=== PATIENT | female | born 1990 | race African-American/Black ===

== ENCOUNTER 2018-09-29 06:47 | Emergency (ER) | payer OTHER ==
[2018-09-29 07:22] VITALS: BP 140/100; PULSE 104; RESP 18; TEMP 98.6
[2018-09-29] MEDS ORDERED: DEXAMETHASONE SOD PHOSPHATE 10 MG/ML 1 ML VIAL IM STA (07:32)
--- NOTE | 2018-09-29 07:40 | ED ---
General Adult HPI - General Chief complaint: Skin/Abscess/Foreign Body Stated complaint: Arm Swelling/Blister Time Seen by Provider: 09/29/18 07:06 Source: patient, RN notes reviewed Mode of arrival: ambulatory Limitations: no limitations - History of Present Illness Initial comments: 28-year-old female presents for evaluation of rash on bilateral upper extremities. Patient had a small rash on her right forearm several days prior with some surrounding erythema, she reported this was very itchy. She didn't believe this was associated with a bug bite. She had attempted to bomb her home, to kill whatever bugs were biting her. She has developed additional bites with surrounding erythema and swelling on both her right upper extremity and left upper extremity. Denies any dyspnea, denies cough. No tongue or lip swelling. No rash that is not associated with these bug bites. - Related Data Home Medications Medication Instructions Recorded Confirmed Albuterol Inhaler [Ventolin Hfa 2 puff INHALATION Q6HR PRN 12/28/13 09/27/18 Inhaler] Albuterol Nebulized [Ventolin 2.5 mg INHALATION DAILY PRN 09/27/18 09/27/18 Nebulized] Beclomethasone Dipropionate [Qvar 1 puff INHALATION ACHS PRN 09/27/18 09/27/18 40 mcg Redihaler] Etonogestrel [Nexplanon] 1 implant SQ [id number] 09/27/18 09/27/18 Previous Rx's Medication Instructions Recorded Montelukast [Singulair] 10 mg PO HS #30 tab 08/03/15 Cephalexin [Keflex] 500 mg PO Q8HR #30 cap 09/29/18 Sulfamethox-Tmp 800-160Mg [Bactrim 1 tab PO Q12HR #20 tab 09/29/18 DS 800-160 mg] diphenhydrAMINE [Benadryl] 25 mg PO TID PRN #21 capsule 09/29/18 methylPREDNISolone Dose Pack 4 mg PO DIRECTED #21 package 09/29/18 [Medrol Dose Pack] Allergies Allergy/AdvReac Type Severity Reaction Status Date / Time ibuprofen [From Motrin] Allergy Rash/Hives Verified 09/29/18 07:22 Review of Systems ROS Statement: Those systems with pertinent positive or pertinent negative responses have been documented in the HPI. ROS Other: All systems not noted in ROS Statement are negative. Past Medical History Past Medical History: Asthma Additional Past Medical History / Comment(s): migraines History of Any Multi-Drug Resistant Organisms: None Reported Past Surgical History: Section Additional Past Surgical History / Comment(s): D&C Past Anesthesia/Blood Transfusion Reactions: No Reported Reaction Past Psychological History: Depression Smoking Status: Never smoker - Past Family History Father Family Medical History: No Reported History Mother Family Medical History: No Reported History General Exam Limitations: no limitations General appearance: alert, in no apparent distress Head exam: Present: atraumatic, normocephalic Eye exam: Present: normal appearance, PERRL Respiratory exam: Present: normal lung sounds bilaterally. Absent: respiratory distress Cardiovascular Exam: Present: regular rate, normal rhythm GI/Abdominal exam: Present: soft. Absent: distended, tenderness Extremities exam: Present: full ROM, other. Absent: tenderness Neurological exam: Present: alert, oriented X3, CN II-XII intact. Absent: motor sensory deficit Psychiatric exam: Present: normal affect, normal mood Skin exam: Present: warm, rash, erythema, urticaria, vesicles (Patient has a 15 cm x 10 cm area on the left posterior forearm erythema, some small blistering, no induration, no abscess. She has 2 additional areas of mild induration and cellulitis on the right upper extremity with central lesion consistent with bug bite.) Course Vital Signs 09/29/18 07:18 Temperature 98.6 F Pulse Rate 104 H Respiratory 18 Rate Blood Pressure 140/100 O2 Sat by Pulse 94 L Oximetry Medical Decision Making - Medical Decision Making 28-year-old female presenting with rash. She has multiple areas of cellulitis, and likely ALLERGIC reaction. Patient given 10 mg of IV Decadron for symptom control, she will continue Benadryl. She will also be prescribed antibiotics for cellulitis. She will attempt to eradicate any insects from her home. She will follow-up with her primary care physician. If symptoms do not improve with usual treatment, she will follow-up with dermatology. Return with worsening or changing symptoms. Disposition Clinical Impression: Insect bites, Cellulitis Disposition: HOME SELF-CARE Condition: Good Instructions (If sedation given, give patient instructions): Insect Bite or Sting (ED), Cellulitis (ED) Prescriptions: Sulfamethox-Tmp 800-160Mg [Bactrim DS 800-160 mg] 1 tab PO Q12HR #20 tab diphenhydrAMINE [Benadryl] 25 mg PO TID PRN #21 capsule PRN Reason: Allergic Reaction Cephalexin [Keflex] 500 mg PO Q8HR #30 cap methylPREDNISolone Dose Pack [Medrol Dose Pack] 4 mg PO DIRECTED #21 package Is patient prescribed a controlled substance at d/c from ED?: No Referrals: Vianey Curran MD [Primary Care Provider] - 1-2 days Kayleigh Ta MD [STAFF PHYSICIAN] - 1-2 days Time of Disposition: 07:39
== END 2018-09-29 07:48 | disposition home or self-care (01) ==
LOC: EC 06:47
DX: S50.862A Insect bite (nonvenomous) of left forearm, initial encounter (principal); S40.861A Insect bite (nonvenomous) of right upper arm, initial encounter; L03.113 Cellulitis of right upper limb; J45.909 Unspecified asthma, uncomplicated; Z79.3 Long term (current) use of hormonal contraceptives; Z88.6 Allergy status to analgesic agent; W57.XXXA Bitten or stung by nonvenomous insect and other nonvenomous arthropods, initial encounter
CPT/HCPCS: 99283; 96372; J1100

== ENCOUNTER 2018-10-02 07:45 | Day surgery (SDC) | payer OTHER ==
[2018-09-27 11:22] VITALS: BMI 33.8
[~2018-10-02 07:45] MED LIST: HEPARIN SODIUM,PORCINE 5,000 UNIT/ML 1 ML VIAL SQ ONE; LACTATED RINGERS 1,000 ML IV SCH; LIDOCAINE 1% 20 ML VIAL (10MG/ML) FOR IV START INTRADERMA PRN; ceFAZolin IN SWFI 2 GM/20 ML SYRINGE IVP ONE
[2018-10-02] MEDS ORDERED: MIDAZOLAM 2 MG/2 ML VIAL IVP ONE ×2 (08:36→09:07)
[2018-10-02] MEDS ORDERED: DEXAMETHASONE SOD PHOS (MDV) 100 MG/10 ML VIAL IVP ONE (08:36)
[2018-10-02] MEDS ORDERED: ONDANSETRON 4 MG/2 ML VIAL IVP ONE (08:37)
[2018-10-02] MEDS: fentaNYL (PF) 50 MCG/ML 2 ML AMP IVP ONE ×2 (09:07→12:11)
--- NOTE | 2018-10-02 09:23 | P.GSHP ---
History of Present Illness H&P Date: 10/02/18 Chief Complaint: Umbilical hernia This is a 28-year-old female who presents today for laparoscopic robotic system repair of umbilical hernia. Patient developed a 3 cm mass in her umbilicus. Past Medical History Past Medical History: Asthma Additional Past Medical History / Comment(s): migraines History of Any Multi-Drug Resistant Organisms: None Reported Past Surgical History: Section Additional Past Surgical History / Comment(s): D&C Past Anesthesia/Blood Transfusion Reactions: No Reported Reaction Past Psychological History: Depression Smoking Status: Never smoker - Past Family History Father Family Medical History: No Reported History Mother Family Medical History: No Reported History Medications and Allergies Home Medications Medication Instructions Recorded Confirmed Type Albuterol Inhaler [Ventolin Hfa 2 puff INHALATION RT-Q6H PRN 12/28/13 09/29/18 History Inhaler] Montelukast [Singulair] 10 mg PO HS #30 tab 08/03/15 09/29/18 Rx Albuterol Nebulized [Ventolin 2.5 mg INHALATION RT-DAILY PRN 09/27/18 09/29/18 History Nebulized] Beclomethasone Dipropionate [Qvar 1 puff INHALATION RT-TID PRN 09/27/18 09/29/18 History 40 mcg Redihaler] Etonogestrel [Nexplanon] 1 implant SQ [id number] 09/27/18 09/29/18 History Acetaminophen Tab [Tylenol Tab] 650 mg PO Q6H PRN 09/29/18 10/02/18 History Cephalexin [Keflex] 500 mg PO Q8HR #30 cap 09/29/18 10/02/18 Rx Sulfamethox-Tmp 800-160Mg [Bactrim 1 tab PO Q12HR #20 tab 09/29/18 10/02/18 Rx DS 800-160 mg] diphenhydrAMINE [Benadryl] 25 mg PO TID PRN 09/29/18 10/02/18 History methylPREDNISolone Dose Pack 4 mg PO DIRECTED #21 package 09/29/18 10/02/18 Rx [Medrol Dose Pack] Allergies Allergy/AdvReac Type Severity Reaction Status Date / Time ibuprofen [From Motrin] Allergy Rash/Hives Verified 09/29/18 07:42 Surgical - Exam Vital Signs Temp Pulse Resp BP Pulse Ox 97.6 F 102 H 16 134/85 99 10/02/18 08:22 10/02/18 08:22 10/02/18 08:22 10/02/18 08:22 10/02/18 08:22 - General well developed, well nourished, no distress - Eyes PERRL - ENT normal pinna - Neck no masses - Respiratory normal expansion - Cardiovascular Rhythm: regular - Abdomen Abdomen: soft, non tender Hernia: umbilical (3 cm umbilical hernia) Results - Labs 10/02/18 08:29 Diabetes panel 10/02/18 Range/Units 08:29 Potassium 4.1 (3.5-5.1) mmol/L Pituitary panel 10/02/18 Range/Units 08:29 Potassium 4.1 (3.5-5.1) mmol/L Adrenal panel 10/02/18 Range/Units 08:29 Potassium 4.1 (3.5-5.1) mmol/L Assessment and Plan Assessment: Umbilical hernia. We'll perform laparoscopic robotic-assisted repair.
[2018-10-02] MEDS ORDERED: ESMOLOL 100 MG/10 ML VIAL ONE (09:57)
[2018-10-02] MEDS ORDERED: HYDROmorphone (PF) 1 MG/ML ONE (09:57)
[2018-10-02] MEDS ORDERED: ROPIVACAINE 5 MG/ML 30 ML VIAL ONE (09:57)
[2018-10-02] MEDS ORDERED: SUCCINYLCHOLINE CHLORIDE 100 MG/5 ML SYR IV ONE (09:57)
[2018-10-02] MEDS ORDERED: NEOSTIGMINE 1 MG/ML 10 ML VIAL ONE (09:57)
[2018-10-02] MEDS ORDERED: ROCURONIUM BROMIDE 10 MG/ML 10 ML VIAL IV ONE (09:57)
[2018-10-02] MEDS ORDERED: LIDOCAINE 1% INJ 10MG/ML (20 ML MDV) ONE (09:57)
[2018-10-02] MEDS ORDERED: GLYCOPYRROLATE 0.2 MG/ML 2 ML VIAL ONE (09:57)
[2018-10-02] MEDS ORDERED: PROPOFOL 10 MG/ML 20 ML VIAL IV ONE (09:57)
[2018-10-02] MEDS ORDERED: fentaNYL (PF) 50 MCG/ML 2 ML AMP ONE (09:57)
[2018-10-02] MEDS ORDERED: MIDAZOLAM 2 MG/2 ML VIAL ONE (09:57)
--- NOTE | 2018-10-02 09:58 | P.ONQ ---
Anesthesiology Proc Note - PNB - Peripheral Nerve Block Performed Bilateral Transversus Abdominis Single Time Out Performed: Yes (904) Procedure Start Time: :05 Procedure Stop Time: 09:15 Indication: Acute Post-Operative Pain, Dx/Pain Location (abdominal pain), Requested by physician Sedation Type: Sedate with meaningful contact maintained Preparation: Sterile Prep Position: Supine Catheter: None Needle Types: On-Q Needle Size: 100mm (4") Needle Gauge: 21 Technique: Ultrasound Injectate: Other (see comment) (10ml 0.5% Ropivacaine + 10ml 1% lidocaine with 1:200,000 + 2mg Dexamethasone epi each side) Blood Aspirated: No Pain Paresthesia on Injection Noted: No Resistance on Injection: Normal Events: Uneventful and Well Tolerated
[2018-10-02] MEDS ORDERED: BUPIVACAINE-EPI 0.5%-1:200,000 10 ML VIAL SQ ONE (10:31)
--- NOTE | 2018-10-02 11:08 | P.OP ---
Date of Procedure: 10/02/18 Preoperative Diagnosis: Umbilical hernia Postoperative Diagnosis: Umbilical and ventral hernia Procedure(s) Performed: Laparoscopic robotic-assisted repair of umbilical and ventral hernia Anesthesia: JAKE Surgeon: Herbert Dover Estimated Blood Loss (ml): 5 Pathology: none sent Condition: stable Disposition: PACU Description of Procedure: MThe patient was placed on the operating table in the supine position. He received general anesthesia. His abdomen was prepped and draped usual fashion. Using a 5 mm optical trocar under direct visualization the peritoneal cavity was entered in the left upper quadrant. The abdomen was then insufflated. The laparoscope was placed back into the perineal cavity. Next a 8 mm robotic trocar was placed in the left lower quadrant and a 12 mm robotic trocar was placed in the left lateral position. The original 5 mm trocar was exchanged for a 8 mm robotic trocar. The patient's placed in the left side up position. And the patient was undocked the robot. The umbilical hernia was visualized. Using hook cautery the peritoneum over the umbilical hernia was excised. The fascia was examined and there appeared to be evidence of extension of the umbilical hernia in the midline creating a ventral hernia. The fascial opening was repaired using 0V LOC suture. Next a piece of 11 cm round ventral light ST mesh was placed into the. Cavity and secured with 2 OV lock suture. The patient was undocked the robot. The needles were retrieved. The fascia of the 12 mm trocar site was closed with 0 Ethibond suture. Skin was closed interrupted 3-0 Monocryl suture. Dermabond dressings was applied. Patient top procedure well and was sent to recovery room stable condition.
[2018-10-02] MEDS: HYDROmorphone 0.5 MG/0.5 ML SYRINGE IVP PRN ×4 (11:20→11:45)
[2018-10-02 11:33] VITALS: TEMP 98.1
[2018-10-02] MEDS ORDERED: HYDROcodone/APAP 7.5-325MG 1 EACH TAB PO ONE (12:50)
[2018-10-02 13:31] VITALS: RESP 16
[2018-10-02 13:57] VITALS: BP 114/70; PULSE 70
== END 2018-10-02 14:00 | disposition home or self-care (01) ==
LOC: OR 07:45
PROVIDERS: ATTEND Surgery
DX: K42.9 Umbilical hernia without obstruction or gangrene (principal); K43.9 Ventral hernia without obstruction or gangrene; J45.909 Unspecified asthma, uncomplicated; Z88.6 Allergy status to analgesic agent; Z79.51 Long term (current) use of inhaled steroids; Z79.899 Other long term (current) drug therapy
CPT/HCPCS: 81025; 64488; 84132; 49652; C1781; J2250; J1644; J2710; J2405; J2001; J3010; J1170 ×2; J1100; J2795; J0330; J2704; J0690

== ENCOUNTER → 2019-02-11 | Outpatient (CLI) | payer OTHER ==
--- NOTE | 2019-02-11 10:52 | CT ---
EXAMINATION TYPE: CT abdomen pelvis w con DATE OF EXAM: 02/11/2019 COMPARISON: None HISTORY: Small bowel obstruction CT DLP: 766.6 mGycm Automated exposure control for dose reduction was used. TECHNIQUE: Helical acquisition of images from the lung bases through the pelvis have been completed. CONTRAST: Performed with Oral Contrast and with IV Contrast, patient injected with 100 mL of Isovue 300. FINDINGS: Small umbilical hernia contains fat, there is likely some local scarring, correlate for [place] gical history. LUNG BASES: No significant abnormality is appreciated. AORTA: No significant abnormality is appreciated. LIVER/GB: No significant abnormality is appreciated. PANCREAS: No significant abnormality is seen. SPLEEN: No significant abnormality is seen. ADRENALS: No significant abnormality is seen. KIDNEYS: No significant abnormality is seen. REPRODUCTIVE ORGANS: No significant abnormality is seen BOWEL: Some thickening along the sigmoid colon is indeterminate and could be due to lack of distenti on or muscular hypertrophy. Appendix is normal. Contrast courses to the level of the rectum. FREE AIR: No Free Air visible. ASCITES: None visible. PELVIC ADENOPATHY: None visualized. RETROPERITONEAL ADENOPATHY: No Retroperitoneal Adenopathy visible. URINARY BLADDER: No significant abnormality is seen. OSSEOUS STRUCTURES: No significant abnormality is seen. IMPRESSION:
== END ==
LOC: RADCTMAIN 06:50
PROVIDERS: ATTEND Surgery Plastic and Reconstructive Surgery
DX: K56.609 Unspecified intestinal obstruction, unspecified as to partial versus complete obstruction (principal)
CPT/HCPCS: 74177

== ENCOUNTER 2021-05-22 14:19 | Emergency (ER) | payer OTHER ==
[2021-05-22 14:35] VITALS: BP 125/82; PULSE 100; RESP 18; TEMP 98.6
--- NOTE | 2021-05-22 14:51 | ED ---
General Adult HPI - General Chief complaint: Recheck/Abnormal Lab/Rx Stated complaint: Wants COVID Test Time Seen by Provider: 05/22/21 14:24 Source: patient Mode of arrival: ambulatory Limitations: no limitations - History of Present Illness Initial comments: 31-year-old female presents to the emergency room for a chief complaint of needing a coronavirus test. Patient presents with another individual who tested positive for Covid. Patient herself denies any symptoms however would like to be tested through the emergency room today.Patient has no other complaints at this time including shortness of breath, chest pain, abdominal pain, nausea or vomiting, headache, or visual changes. - Related Data Home Medications Medication Instructions Recorded Confirmed RX: Albuterol Inhaler (Mhu) 2 puff INHALATION RT-Q6H PRN 12/28/13 09/29/18 [Ventolin Hfa Inhaler (Mhu)] Albuterol Nebulized [Ventolin 2.5 mg INHALATION RT-DAILY PRN 09/27/18 09/29/18 Nebulized] Beclomethasone Dipropionate [Qvar 1 puff INHALATION RT-TID PRN 09/27/18 09/29/18 40 mcg Redihaler] Etonogestrel [Nexplanon] 1 implant SQ [id number] 09/27/18 09/29/18 Acetaminophen Tab [Tylenol Tab] 650 mg PO Q6H PRN 09/29/18 10/02/18 diphenhydrAMINE [Benadryl] 25 mg PO TID PRN 09/29/18 10/02/18 Previous Rx's Medication Instructions Recorded RX: Montelukast [Singulair] 10 mg PO HS #30 tab 08/03/15 Cephalexin [Keflex] 500 mg PO Q8HR #30 cap 09/29/18 Sulfamethox-Tmp 800-160Mg [Bactrim 1 tab PO Q12HR #20 tab 09/29/18 DS 800-160 mg] methylPREDNISolone Dose Pack 4 mg PO DIRECTED #21 package 09/29/18 [Medrol Dose Pack] Docusate [Colace] 100 mg PO BID #20 capsule 10/02/18 HYDROcodone/APAP 7.5-325MG [[place] 1 tab PO Q4H PRN 3 Days #18 tab 10/02/18 7.5-325] Allergies Allergy/AdvReac Type Severity Reaction Status Date / Time ibuprofen [From Motrin] Allergy Rash/Hives Verified 05/22/21 14:36 Review of Systems ROS Statement: Those systems with pertinent positive or pertinent negative responses have been documented in the HPI. ROS Other: All systems not noted in ROS Statement are negative. Past Medical History Past Medical History: Asthma Additional Past Medical History / Comment(s): migraines History of Any Multi-Drug Resistant Organisms: None Reported Past Surgical History: Section, Hernia Repair Additional Past Surgical History / Comment(s): D&C Past Anesthesia/Blood Transfusion Reactions: No Reported Reaction Past Psychological History: No Psychological Hx Reported Smoking Status: Never smoker Past Alcohol Use History: Occasional Past Drug Use History: None Reported - Past Family History Father Family Medical History: No Reported History Mother Family Medical History: No Reported History General Exam Limitations: no limitations General appearance: alert, in no apparent distress Head exam: Present: atraumatic Eye exam: Present: normal appearance, PERRL, EOMI. Absent: scleral icterus, conjunctival injection ENT exam: Present: normal exam, mucous membranes moist Neck exam: Present: normal inspection, full ROM. Absent: tenderness Respiratory exam: Present: normal lung sounds bilaterally. Absent: respiratory distress, wheezes Cardiovascular Exam: Present: regular rate, normal rhythm, normal heart sounds Course Vital Signs 05/22/21 05/22/21 14:29 14:40 Temperature 98.6 F Pulse Rate 100 Respiratory 18 18 Rate Blood Pressure 125/82 O2 Sat by Pulse 98 Oximetry Medical Decision Making - Medical Decision Making covid test is negative. Patient does not want antibody infusion for post exposure prophylaxis. Patient can be discharged home. Will return here for any worsening symptoms. - Lab Data Lab Results 05/22/21 Range/Units 14:38 Coronavirus (PCR) Not Detected (Not Detectd) Disposition Clinical Impression: Lab test negative for COVID-19 virus Disposition: HOME SELF-CARE Condition: Good Instructions (If sedation given, give patient instructions): Coronavirus Disea se 2018 (COVID-19) Additional Instructions: Please follow-up with your doctor in one to 2 days. Return to the emergency room for any worsening symptoms. Is patient prescribed a controlled substance at d/c from ED?: No Referrals: Vianey Curran MD [Primary Care Provider] - 1-2 days Time of Disposition: 15:16
== END 2021-05-22 15:35 | disposition home or self-care (01) ==
LOC: EC 14:19
DX: Z20.822 Contact with and (suspected) exposure to COVID-19 (principal); J45.909 Unspecified asthma, uncomplicated; Z88.6 Allergy status to analgesic agent
CPT/HCPCS: 87635; 99283

== ENCOUNTER 2022-02-14 10:33 | Emergency (ER) | payer OTHER ==
[2022-02-14 10:45] VITALS: BP 124/90; PULSE 95; RESP 18; TEMP 98.3
--- NOTE | 2022-02-14 11:06 | ED ---
Recheck HPI - General Chief Complaint: Abdominal Pain Stated Complaint: 12 weeks preg, complications Time Seen by Provider: 02/14/22 10:46 Source: patient, RN notes reviewed Mode of arrival: ambulatory Limitations: no limitations - History of Present Illness Initial Comments: This is a 31-year-old female who presents to the emergency department req uesting an obstetrics ultrasound. Patient states that she had an OB appointment in [place] yesterday, and she had an ultrasound at that time, where they were unable to find a heartbeat. Patient denies any pelvic pain or vaginal bleeding. This was not the first ultrasound she's had. She has not had any issues in this thus far. She does have a hx of a miscarriage at 12 weeks a few years ago. Denies any fevers, chills, sore throat, cough, dyspnea, chest pain, palpit ations, abdominal pain, nausea, vomiting, diarrhea, back pain, or headaches. MD Complaint: other (Requesting obstetrics ultrasound) - Related Data Home Medications Medication Instructions Recorded Confirmed Vit No.179/Iron/Folic 1 tab PO DAILY 02/14/22 02/14/22 [ Tablet] Allergies Allergy/AdvReac Type Severity Reaction Status Date / Time ibuprofen [From Motrin] Allergy Rash/Hives Verified 02/14/22 11:32 Review of Systems ROS Statement: Those systems with pertinent positive or pertinent negative responses have been documented in the HPI. ROS Other: All systems not noted in ROS Statement are negative. Past Medical History Past Medical History: Asthma Additional Past Medical History / Comment(s): migraines History of Any Multi-Drug Resistant Organisms: None Reported Past Surgical History: Section, Hernia Repair Additional Past Surgical History / Comment(s): D&C Past Anesthesia/Blood Transfusion Reactions: No Reported Reaction Past Psychological History: No Psychological Hx Reported Smoking Status: Never smoker Past Alcohol Use History: Occasional Past Drug Use History: None Reported - Past Family History Father Family Medical History: No Reported History Mother Family Medical History: No Reported History General Exam Limitations: no limitations General appearance: alert, in no apparent distress Head exam: Present: atraumatic, normocephalic, normal inspection Respiratory exam: Present: normal lung sounds bilaterally. Absent: respiratory distress, wheezes, rales, rhonchi, stridor Cardiovascular Exam: Present: regular rate, normal rhythm, normal heart sounds. Absent: systolic murmur, diastolic murmur, rubs, gallop, clicks GI/Abdominal exam: Present: normal bowel sounds Neurological exam: Present: alert, oriented X3, CN II-XII intact Psychiatric exam: Present: normal affect, normal mood Skin exam: Present: warm, dry, intact, normal color. Absent: rash Course Vital Signs 02/14/22 10:40 Temperature 98.3 F Pulse Rate 95 Respiratory 18 Rate Blood Pressure 124/90 O2 Sat by Pulse 97 Oximetry Medical Decision Making - Medical Decision Making This is a 31-year-old female who presents to the emergency department requesting an obstetrics ultrasound. Repeat ultrasound is consistent with demise. Lab work was otherwise nonactionable. Advised the patient that she'll need to follow-up with her technical support coordinator to trend the hCG levels. She can also discuss with her technical support coordinator the best way to move forward, whether it be naturally, with a D&C, or medication. Return precautions reviewed in depth, the patient is instructed to return to the emergency department with any new, worsening, or concerning symptoms. Patient verbalized understanding. This case was discussed in detail with the attending ED physician. Presentation, findings, and treatment plan discussed in detail as well. - Lab Data Result diagrams: 02/14/22 11:09 02/14/22 11:09 Lab Results 02/14/22 02/14/22 02/14/22 Range/Units 10:50 11:09 11:09 WBC 4.3 (3.8-10.6) k/uL RBC 4.37 (3.80-5.40) m/uL Hgb 12.9 (11.4-16.0) gm/dL Hct 39.1 (34.0-46.0) % MCV 89.5 (80.0-100.0) fL MCH 29.5 (25.0-35.0) pg MCHC 33.0 (31.0-37.0) g/dL RDW 12.5 (11.5-15.5) % Plt Count 266 (150-450) k/uL MPV 7.2 Neutrophils % 52 % Lymphocytes % 32 % Monocytes % 7 % Eosinophils % 5 % Basophils % 1 % Neutrophils # 2.2 (1.3-7.7) k/uL Lymphocytes # 1.4 (1.0-4.8) k/uL Monocytes # 0.3 (0-1.0) k/uL Eosinophils # 0.2 (0-0.7) k/uL Basophils # 0.0 (0-0.2) k/uL Sodium 135 L (137-145) mmol/L Potassium 4.1 (3.5-5.1) mmol/L Chloride 106 (98-107) mmol/L Carbon Dioxide 23 (22-30) mmol/L Anion Gap 6 mmol/L BUN 7 (7-17) mg/dL Creatinine 0.70 (0.52-1.04) mg/dL Est GFR (CKD-EPI)AfAm >90 (>60 ml/min/1.73 sqM) Est GFR (CKD-EPI)NonAf >90 (>60 ml/min/1.73 sqM) Glucose 101 H (74-99) mg/dL Calcium 9.2 (8.4-10.2) mg/dL Total Bilirubin 0.6 (0.2-1.3) mg/dL AST 21 (14-36) U/L ALT 14 (4-34) U/L Alkaline Phosphatase 56 (38-126) U/L Total Protein 8.1 (6.3-8.2) g/dL Albumin 4.3 (3.5-5.0) g/dL HCG, Quant 9030.8 mIU/mL Urine Color Urine Appearance (Clear) Urine pH (5.0-8.0) Ur Specific [place] (1.001-1.035) Urine Protein (Negative) Urine Glucose (UA) (Negative) Urine Ketones (Negative) Urine Blood (Negative) Urine Nitrite (Negative) Urine Bilirubin (Negative) Urine Urobilinogen (<2.0) mg/dL Ur Leukocyte Esterase (Negative) Urine RBC (0-5) /hpf Urine WBC (0-5) /hpf Ur Squamous Epith Cells (0-4) /hpf Urine Bacteria (None) /hpf Urine Mucus (None) /hpf Blood Type O Positive Blood Type Recheck O Pos Bld Type Recheck Status No 02/14/22 Range/Units 11:16 WBC (3.8-10.6) k/uL RBC (3.80-5.40) m/uL Hgb (11.4-16.0) gm/dL Hct (34.0-46.0) % MCV (80.0-100.0) fL MCH (25.0-35.0) pg MCHC (31.0-37.0) g/dL RDW (11.5-15.5) % Plt Count (150-450) k/uL MPV Neutrophils % % Lymphocytes % % Monocytes % % Eosinophils % % Basophils % % Neutrophils # (1.3-7.7) k/uL Lymphocytes # (1.0-4.8) k/uL Monocytes # (0-1.0) k/uL Eosinophils # (0-0.7) k/uL Basophils # (0-0.2) k/uL Sodium (137-145) mmol/L Potassium (3.5-5.1) mmol/L Chloride (98-107) mmol/L Carbon Dioxide (22-30) mmol/L Anion Gap mmol/L BUN (7-17) mg/dL Creatinine (0.52-1.04) mg/dL Est GFR (CKD-EPI)AfAm (>60 ml/min/1.73 sqM) Est GFR (CKD-EPI)NonAf (>60 ml/min/1.73 sqM) Glucose (74-99) mg/dL Calcium (8.4-10.2) mg/dL Total Bilirubin (0.2-1.3) mg/dL AST (14-36) U/L ALT (4-34) U/L Alkaline Phosphatase (38-126) U/L Total Protein (6.3-8.2) g/dL Albumin (3.5-5.0) g/dL HCG, Quant mIU/mL Urine Color Yellow Urine Appearance Cloudy H (Clear) Urine pH 5.5 (5.0-8.0) Ur Specific [place] 1.013 (1.001-1.035) Urine Protein Negative (Negative) Urine Glucose (UA) Negative (Negative) Urine Ketones Negative (Negative) Urine Blood Negative (Negative) Urine Nitrite Negative (Negative) Urine Bilirubin Negative (Negative) Urine Urobilinogen 2.0 (<2.0) mg/dL Ur Leukocyte Esterase Negative (Negative) Urine RBC 1 (0-5) /hpf Urine WBC 1 (0-5) /hpf Ur Squamous Epith Cells <1 (0-4) /hpf Urine Bacteria Moderate H (None) /hpf Urine Mucus Rare H (None) /hpf Blood Type Blood Type Recheck Bld Type Recheck Status - Radiology Data Radiology results: report reviewed, image reviewed Disposition Clinical Impression: demise Disposition: HOME SELF-CARE Instructions (If sedation given, give patient instructions): Miscarriage (ED) Additional Instructions: Return to the emergency department with any new, worsening, or concerning symptoms. Make sure that you follow up with your technical support coordinator, as you will need to have your hCG levels trended. You can also discuss the possibility of a D&C with your technical support coordinator. Is patient prescribed a controlled substance at d/c from ED?: No Referrals: Vianey Curran MD [Primary Care Provider] - 1-2 days
[2022-02-14 11:24] LABS: Basophils % (A) 1 %; Eosinophils # (A) 0.2 k/uL (0-0.7); Eosinophils % (A) 5 %; HCT 39.1 % (34.0-46.0); HGB 12.9 gm/dL (11.4-16.0); Lymphocytes # (A) 1.4 k/uL (1.0-4.8); Lymphocytes % (A) 32 %; MCH 29.5 pg (25.0-35.0); MCV 89.5 fL (80.0-100.0); Mean Platelet Volume 7.2; Monocytes # (A) 0.3 k/uL (0-1.0); Monocytes % (A) 7 %; Neutrophils # (A) 2.2 k/uL (1.3-7.7); Neutrophils % (A) 52 %; Platelet Count 266 k/uL (150-450); RBC 4.37 m/uL (3.80-5.40); RDW 12.5 % (11.5-15.5); WBC 4.3 k/uL (3.8-10.6)
[2022-02-14 11:41] LABS: ALT 14 U/L (4-34); AST 21 U/L (14-36); African American GFR (CKD) >90 (>60 ml/min/1.73 sqM); Albumin 4.3 g/dL (3.5-5.0); Alkaline Phosphatase 56 U/L (38-126); Anion Gap 6 mmol/L; Blood Urea Nitrogen 7 mg/dL (7-17); Calcium 9.2 mg/dL (8.4-10.2); Carbon Dioxide 23 mmol/L (22-30); Chloride 106 mmol/L (98-107); Glucose 101 mg/dL (74-99); Non-African American GFR(CKD) >90 (>60 ml/min/1.73 sqM); Potassium 4.1 mmol/L (3.5-5.1); Sodium 135 mmol/L (137-145); Total Bilirubin 0.6 mg/dL (0.2-1.3); Total Protein 8.1 g/dL (6.3-8.2)
--- NOTE | 2022-02-14 11:51 | US ---
EXAMINATION TYPE: Transabdominal DATE OF EXAM: 02/14/2022 11:34 AM COMPARISON: NONE CLINICAL HISTORY: Unable to find heart rate yesterday. EXAM PERFORMED: Transabdominal (TA) EXAM MEASUREMENTS: GESTATIONAL AGE / DATING Physician Established: (12 weeks/3 days) EDC: 08/26/2022 Dates by LMP: (13 weeks/3 days) EDC: 08/26/2022 Dates by First Scan: No previous this is first scan Dates by Current Scan for: (9 weeks/0 days) , demise MATERNAL ANATOMY Uterus: 10.7 x 6.6 x 7.7 cm Right Ovary: 4.2 x 300 x 1.9 cm Left Ovary: not visualized Post CDS / Adnexa: wnl Presence of free fluid: none GESTATION / SURVEY CRL: 2.3 cm (9 weeks/0 days) Heart Rate: not detected Date of LMP: 11/19/2021 Beta HcG (if available): not available demise. No heart rate is detected on color Doppler or spectral Doppler IMPRESSION: Findings consistent with demise
[2022-02-14 11:58] LABS: Appearance,Urine Cloudy (Clear); Bacteria,Urine Moderate /hpf; Bilirubin,Urine Negative (Negative); Blood,Urine Negative (Negative); Color,Urine Yellow; Glucose,Urine (UA) Negative (Negative); Ketones,Urine Negative (Negative); Leukocyte Esterase,Urine Negative (Negative); Mucus,Urine Rare /hpf; Nitrite,Urine Negative (Negative); PH, Urine 5.5 (5.0-8.0); Protein,Urine Negative (Negative); RBC,Urine 1 /hpf (0-5); Specific Gravity,Urine 1.013 (1.001-1.035); Squamous Epithelial Cell,Urine <1 /hpf (0-4); WBC,Urine 1 /hpf (0-5)
[2022-02-14 11:58] LABS: HCG,Quantitative Serum 9030.8 mIU/mL
== END 2022-02-14 12:32 | disposition home or self-care (01) ==
LOC: EC 10:33
DX: O36.4XX0 Maternal care for intrauterine death, not applicable or unspecified (principal); J45.909 Unspecified asthma, uncomplicated; Z88.6 Allergy status to analgesic agent
CPT/HCPCS: 36415; 76801; 80053; 81001; 84702; 85025; 86900; 86901; 99284

== ENCOUNTER → 2022-02-21 | Outpatient (CLI) | payer OTHER ==
[2022-02-21 18:27] LABS: Basophils # (A) 0.06 X 10*3/uL (0.00-0.10); Basophils % (A) 1.2 %; Eosinophils # (A) 0.26 X 10*3/uL (0.04-0.35); Eosinophils % (A) 5.1 %; HCT 38.4 % (37.2-46.3); HGB 13.2 g/dL (12.0-15.0); Immature Grans, Automated 0.2 %; Lymphocytes # (A) 1.51 X 10*3/uL (0.90-5.00); Lymphocytes % (A) 29.5 %; MCH 30.5 pg (27.0-32.0); MCHC 34.4 g/dL (32.0-37.0); MCV 88.7 fL (80.0-97.0); Mean Platelet Volume 9.6 fL (9.5-12.2); Monocytes # (A) 0.55 X 10*3/uL (0.20-1.00); Monocytes % (A) 10.8 %; NRBC Per 100 WBC 0 /100 WBCS (0.0-0.0); Neutrophils # (A) 2.72 X 10*3/uL (1.80-7.70); Neutrophils % (A) 53.2 %; Platelet Count 227 X 10*3/uL (140-440); RBC 4.33 X 10*6/uL (4.10-5.20); RDW 12.4 % (11.5-14.5); WBC 5.11 X 10*3/uL (4.50-10.00)
== END | disposition home or self-care (01) ==
LOC: LABWHC1 12:35
DX: N91.2 Amenorrhea, unspecified (principal); Z34.90 Encounter for supervision of normal pregnancy, unspecified, unspecified trimester
CPT/HCPCS: 36415; 84702; 85025; 86850; 86900; 86901

== ENCOUNTER → 2022-03-31 | Outpatient (CLI) | payer OTHER ==
--- NOTE | 2022-04-01 09:24 | US ---
EXAMINATION TYPE: US pelvis complete transvag DATE OF EXAM: 03/31/2022 COMPARISON: 02/14/2022 CLINICAL HISTORY: 31-year-old female O03.9 MISCARRIAGE. Patient states she had a miscarriage and a D&C 3 weeks ago and is still having bleeding TECHNIQUE: Transabdominal and transvaginal sonographic images of the pelvis were acquired. Date of LMP: Unknown FINDINGS: EXAM MEASUREMENTS: Uterus: 8.6 x 4.6 x 4.8 cm Endometrial Stripe: 1.3 cm Right Ovary: 3.5 x 2.6 x 2.4 cm Left Ovary: 2.7 x 1.6 x 1.7 cm 1. Uterus: anteverted 2. Endometrium: heterogeneous and mildly thickened. No associated vascularity. 3. Right Ovary: Follicular change. 4. Left Ovary: Follicular change. 5. Bilateral Adnexa: wnl 6. Posterior cul-de-sac: wnl IMPRESSION: Mildly thickened and heterogeneous endometrium or uterine cavity contents measuring up to 1.3 cm thic k. Possible retained hemorrhagic products. No associated vascularity to clearly indicate retained pro ducts of conception. Correlate with beta hCG. Follicular change in both ovaries.
== END | disposition home or self-care (01) ==
LOC: RADUSWWP 16:09
PROVIDERS: ATTEND Obstetrics & Gynecology
DX: N93.9 Abnormal uterine and vaginal bleeding, unspecified (principal)
CPT/HCPCS: 76830; 76856

== ENCOUNTER 2023-02-28 13:05 | Emergency (ER) | payer OTHER ==
[2023-02-28] MEDS ORDERED: SODIUM CHLORIDE 0.9% 1,000 ML IV ONE (13:44)
--- NOTE | 2023-02-28 13:46 | ED ---
Female Urogenital HPI - General Chief complaint: Abdominal Pain Stated complaint: Cramping, not far how long Time Seen by Provider: 02/28/23 13:15 Source: patient, RN notes reviewed, old records reviewed Mode of arrival: ambulatory Limitations: no limitations - History of Present Illness Initial comments: This is a 32-year-old female the ER today. This patient Dese for evaluation regards to abdominal pain. History of prior hernia. Patient's abdominal pain today is Located by positive . Patient believes she may be about 1-2 months currently. She had at home positive test no vaginal bleeding no discharge no nausea vomiting no diarrhea no fevers no medical history takes no medications MD Complaint: pelvic pain, other (Positive ) -: days(s) Location: suprapubic Severity: mild Severity scale (1-10): 2 Quality: cramping Consistency: constant Improves with: none Worsens with: none Last Menstrual Period: 01/26/23 Patient : Yes Associated Symptoms: abdominal pain, nausea/vomiting, weakness - Related Data Sexually active: Yes Home Medications Medication Instructions Recorded Confirmed Vit No.179/Iron/Folic 1 tab PO DAILY 02/14/22 02/14/22 [ Tablet] Allergies Allergy/AdvReac Type Severity Reaction Status Date / Time ibuprofen [From Motrin] Allergy Rash/Hives Verified 02/28/23 13:10 Review of Systems ROS Statement: Those systems with pertinent positive or pertinent negative responses have been documented in the HPI. ROS Other: All systems not noted in ROS Statement are negative. Past Medical History Past Medical History: Asthma Additional Past Medical History / Comment(s): migraines History of Any Multi-Drug Resistant Organisms: None Reported Past Surgical History: Section, Hernia Repair Additional Past Surgical History / Comment(s): D&C Past Anesthesia/Blood Transfusion Reactions: No Reported Reaction Past Psychological History: No Psychological Hx Reported Smoking Status: Never smoker Past Alcohol Use History: Occasional Past Drug Use History: None Reported - Past Family History Father Family Medical History: No Reported History Mother Family Medical History: No Reported History General Exam - General Exam Comments Initial Comments: No abdominal tenderness Limitations: no limitations General appearance: alert, in no apparent distress, anxious Head exam: Present: atraumatic, normocephalic, normal inspection Eye exam: Present: normal appearance, PERRL, EOMI. Absent: scleral icterus, conjunctival injection, periorbital swelling ENT exam: Present: normal exam, mucous membranes moist Neck exam: Present: normal inspection. Absent: tenderness, meningismus, lymphadenopathy Respiratory exam: Present: normal lung sounds bilaterally. Absent: respiratory distress, wheezes, rales, rhonchi, stridor Cardiovascular Exam: Present: regular rate, normal rhythm, normal heart sounds. Absent: systolic murmur, diastolic murmur, rubs, gallop, clicks GI/Abdominal exam: Present: soft, normal bowel sounds. Absent: distended, tenderness, guarding, rebound, rigid Extremities exam: Present: normal inspection, full ROM, normal capillary refill. Absent: tenderness, pedal edema, joint swelling, calf tenderness Back exam: Present: normal inspection Neurological exam: Present: alert, oriented X3, CN II-XII intact Psychiatric exam: Present: normal affect, normal mood Skin exam: Present: warm, dry, intact, normal color. Absent: rash Course Vital Signs 02/28/23 02/28/23 02/28/23 13:06 15:25 16:46 Temperature 98.3 F 98.4 F 98.2 F Pulse Rate 108 H 79 76 Respiratory 18 18 16 Rate Blood Pressure 129/87 115/85 116/89 O2 Sat by Pulse 98 100 99 Oximetry - Reevaluation(s) Reevaluation #1: 02/28/23 15:33 Medical records reviewed Reevaluation #2: 02/28/23 16:30 Patient has no current abdominal pain. No abdominal tenderness throughout ER stay and are both initial exam and recurrent exam Reevaluation #3: 02/28/23 16:30 Patient informed of results and questions answered Patient understands to receive outpatient beta hCG in 2 days Reevaluation #4: 02/28/23 15:33 Was pt. sent in by a medical professional or institution (, PA, HOME HEALTH CARE PROVIDER, urgent care, hospital, or alf...) When possible be specific @ -no Did you speak to anyone other than the patient for history (EMS, parent, family, police, friend...)? What history was obtained from this source @ -no Did you review nursing and triage notes (agree or disagree)? Why? @ -agree Are old charts reviewed (outside hosp., previous admission, EMS record, old EKG, old radiological studies, urgent care reports/EKG's, alf records)? Report findings @ -yes Differential Diagnosis (chest pain, altered mental status, abdominal pain women, abdominal pain men, vaginal bleeding, weakness, fever, dyspnea, syncope, headache, dizziness, GI bleed, back pain, seizure, CVA, palpatations, mental health, musculoskeletal)? @ -prior EKG interpreted by me (3pts min.). @ -no X-rays interpreted by me (1pt min.). @ -no CT interpreted by me (1pt min.). @ -no U/S interpreted by me (1pt. min.). @ -yes What testing was considered but not performed or refused? (CT, X-rays, U/S, labs)? Why? @ -none What meds were considered but not given or refused? Why? @ -none Did you discuss the management of the patient with other professionals (professionals i.e. , PA, HOME HEALTH CARE PROVIDER, lab, RT, psych nurse, social work msw, packager hand, teacher, fire control officer, wrapper caser)? Give summary @ -no Was smoking cessation discussed for >3mins.? @ -no Was critical care preformed (if so, how long)? @ -no Were there social determinants of health that impacted care today? How? (Homelessness, low income, unemployed, alcoholism, drug addiction, transportation, low edu. Level, literacy, decrease access to med. care, care home, rehab)? @ -none Was there de-escalation of care discussed even if they declined (Discuss DNR or withdrawal of care, Hospice)? DNR status @ -no What co-morbidities impacted this encounter? (DM, HTN, Smoking, COPD, CAD, Cancer, CVA, ARF, Chemo, Hep., AIDS, mental health diagnosis, sleep apnea, morbid obesity)? @ -none Was patient admitted / discharged? Hospital course, mention meds given and route, prescriptions, significant lab abnormalities, going to OR and other perti nent info. @ - 32 female to the ER today for evaluation of abdominal pain. Patient positive early likely IUP, also could be ectopic versus early versus demise. Patient will follow-up as an outpatient Charge Undiagnosed new problem with uncertain prognosis? @ -no Drug Therapy requiring intensive monitoring for toxicity (Heparin, Nitro, Insulin, Cardizem)? @ -no Were any procedures done? @ -no Diagnosis/symptom? @ -Abdominal pain and , early IUP versus demise miscarriage and ectopic Acute, or Chronic, or Acute on Chronic? @ -Acute Uncomplicated (without systemic symptoms) or Complicated (systemic symptoms)? @ -Complicated Side effects of treatment? @ -no Exacerbation, Progression, or Severe Exacerbation? @ -exacerbation Poses a threat to life or bodily function? How? (Chest pain, USA, MA, pneumonia, PE, COPD, DKA, ARF, appy, cholecystitis, CVA, Diverticulitis, Homicidal, Suicidal, threat to staff... and all critical care pts) @ -no Reevaluation #5: 02/28/23 15:33 Differential Abdominal Pain Women: Appendicitis, Cholecystitis, diverticulosis, ischemic bowel, pancreatitis, hepat itis, UTI, gastroenteritis, AAA, incarcerated hernia, bowel obstruction, constipation, inflammatory bowel, hepatitis, peptic ulcer disease, splenic infarction, perforated viscus, vulvitis, ovarian torsion, PID, kidney stone, placenta abruption, this is not meant to be an all-inclusive list Medical Decision Making - Medical Decision Making 32 female to the ER today for evaluation of abdominal pain. Patient positive early likely IUP, also could be ectopic versus early versus demise. Patient will follow-up as an outpatient - Lab Data Result diagrams: 02/28/23 13:48 02/28/23 13:48 Lab Results 02/28/23 02/28/23 02/28/23 Range/Units 13:48 13:48 13:48 WBC 6.1 (3.8-10.6) k/uL RBC 4.65 (3.80-5.40) m/uL Hgb 14.6 (11.4-16.0) gm/dL Hct 41.2 (34.0-46.0) % MCV 88.5 (80.0-100.0) fL MCH 31.4 (25.0-35.0) pg MCHC 35.5 (31.0-37.0) g/dL RDW 12.4 (11.5-15.5) % Plt Count 299 (150-450) k/uL MPV 7.1 Neutrophils % 53 % Lymphocytes % 31 % Monocytes % 8 % Eosinophils % 5 % Basophils % 1 % Neutrophils # 3.2 (1.3-7.7) k/uL Lymphocytes # 1.9 (1.0-4.8) k/uL Monocytes # 0.5 (0-1.0) k/uL Eosinophils # 0.3 (0-0.7) k/uL Basophils # 0.1 (0-0.2) k/uL PT 10.6 (9.0-12.0) sec INR 1.0 (<1.2) APTT 22.9 (22.0-30.0) sec Sodium (137-145) mmol/L Potassium (3.5-5.1) mmol/L Chloride (98-107) mmol/L Carbon Dioxide (22-30) mmol/L Anion Gap mmol/L BUN (7-17) mg/dL Creatinine (0.52-1.04) mg/dL Est GFR (CKD-EPI)AfAm (>60 ml/min/1.73 sqM) Est GFR (CKD-EPI)NonAf (>60 ml/min/1.73 sqM) Glucose (74-99) mg/dL Calcium (8.4-10.2) mg/dL Total Bilirubin (0.2-1.3) mg/dL AST (14-36) U/L ALT (4-34) U/L Alkaline Phosphatase (38-126) U/L Total Protein (6.3-8.2) g/dL Albumin (3.5-5.0) g/dL HCG, Quant mIU/mL Urine Color Yellow Urine Appearance Cloudy H (Clear) Urine pH 5.5 (5.0-8.0) Ur Specific [place] 1.017 (1.001-1.035) Urine Protein Negative (Negative) Urine Glucose (UA) Negative (Negative) Urine Ketones Negative (Negative) Urine Blood Negative (Negative) Urine Nitrite Negative (Negative) Urine Bilirubin Negative (Negative) Urine Urobilinogen 3.0 (<2.0) mg/dL Ur Leukocyte Esterase Negative (Negative) Urine RBC 2 (0-5) /hpf Urine WBC 4 (0-5) /hpf Ur Squamous Epith Cells 7 H (0-4) /hpf Urine Bacteria Occasional H (None) /hpf Urine Mucus Rare H (None) /hpf Urine HCG, Qual (Not Detectd) Blood Type Blood Type Recheck Bld Type Recheck Status 02/28/23 02/28/23 02/28/23 Range/Units 13:48 13:48 13:48 WBC (3.8-10.6) k/uL RBC (3.80-5.40) m/uL Hgb (11.4-16.0) gm/dL Hct (34.0-46.0) % MCV (80.0-100.0) fL MCH (25.0-35.0) pg MCHC (31.0-37.0) g/dL RDW (11.5-15.5) % Plt Count (150-450) k/uL MPV Neutrophils % % Lymphocytes % % Monocytes % % Eosinophils % % Basophils % % Neutrophils # (1.3-7.7) k/uL Lymphocytes # (1.0-4.8) k/uL Monocytes # (0-1.0) k/uL Eosinophils # (0-0.7) k/uL Basophils # (0-0.2) k/uL PT (9.0-12.0) sec INR (<1.2) APTT (22.0-30.0) sec Sodium 135 L (137-145) mmol/L Potassium 4.4 (3.5-5.1) mmol/L Chloride 102 (98-107) mmol/L Carbon Dioxide 21 L (22-30) mmol/L Anion Gap 12 mmol/L BUN 12 (7-17) mg/dL Creatinine 1.08 H (0.52-1.04) mg/dL Est GFR (CKD-EPI)AfAm 79 (>60 ml/min/1.73 sqM) Est GFR (CKD-EPI)NonAf 69 (>60 ml/min/1.73 sqM) Glucose 102 H (74-99) mg/dL Calcium 9.7 (8.4-10.2) mg/dL Total Bilirubin 0.9 (0.2-1.3) mg/dL AST 21 (14-36) U/L ALT 15 (4-34) U/L Alkaline Phosphatase 66 (38-126) U/L Total Protein 8.9 H (6.3-8.2) g/dL Albumin 4.6 (3.5-5.0) g/dL HCG, Quant 9209.6 mIU/mL Urine Color Urine Appearance (Clear) Urine pH (5.0-8.0) Ur Specific [place] (1.001-1.035) Urine Protein (Negative) Urine Glucose (UA) (Negative) Urine Ketones (Negative) Urine Blood (Negative) Urine Nitrite (Negative) Urine Bilirubin (Negative) Urine Urobilinogen (<2.0) mg/dL Ur Leukocyte Esterase (Negative) Urine RBC (0-5) /hpf Urine WBC (0-5) /hpf Ur Squamous Epith Cells (0-4) /hpf Urine Bacteria (None) /hpf Urine Mucus (None) /hpf Urine HCG, Qual Detected (Not Detectd) Blood Type O Positive Blood Type Recheck O Pos Bld Type Recheck Status No - Radiology Data Radiology results: report reviewed (US is POSITIVE FOR GESTATIONAL SAC, NO POLE, NO HEARTBEAT, NO ECTOPIC NOTED), image reviewed Disposition Clinical Impression: Abdominal pain, Disposition: HOME SELF-CARE Condition: Good Instructions (If sedation given, give patient instructions): Abdominal Pain in (ED) Is patient prescribed a controlled substance at d/c from ED?: No Referrals: Sabine Quintanilla MD [STAFF PHYSICIAN] - 1-2 days Time of Disposition: 16:30
[2023-02-28 14:15] LABS: Basophils # (A) 0.1 k/uL (0-0.2); Basophils % (A) 1 %; Eosinophils # (A) 0.3 k/uL (0-0.7); Eosinophils % (A) 5 %; HCT 41.2 % (34.0-46.0); HGB 14.6 gm/dL (11.4-16.0); Lymphocytes # (A) 1.9 k/uL (1.0-4.8); Lymphocytes % (A) 31 %; MCH 31.4 pg (25.0-35.0); MCHC 35.5 g/dL (31.0-37.0); MCV 88.5 fL (80.0-100.0); Mean Platelet Volume 7.1; Monocytes # (A) 0.5 k/uL (0-1.0); Monocytes % (A) 8 %; Neutrophils # (A) 3.2 k/uL (1.3-7.7); Neutrophils % (A) 53 %; Platelet Count 299 k/uL (150-450); RBC 4.65 m/uL (3.80-5.40); RDW 12.4 % (11.5-15.5); WBC 6.1 k/uL (3.8-10.6)
[2023-02-28 14:21] LABS: Appearance,Urine Cloudy (Clear); Bacteria,Urine Occasional /hpf; Bilirubin,Urine Negative (Negative); Blood,Urine Negative (Negative); Color,Urine Yellow; Glucose,Urine (UA) Negative (Negative); Ketones,Urine Negative (Negative); Leukocyte Esterase,Urine Negative (Negative); Mucus,Urine Rare /hpf; Nitrite,Urine Negative (Negative); PH, Urine 5.5 (5.0-8.0); Protein,Urine Negative (Negative); RBC,Urine 2 /hpf (0-5); Specific Gravity,Urine 1.017 (1.001-1.035); Squamous Epithelial Cell,Urine 7 /hpf (0-4); WBC,Urine 4 /hpf (0-5)
[2023-02-28 14:24] LABS: Partial Thromboplastin Time 22.9 sec (22.0-30.0); Prothrombin Time 10.6 sec (9.0-12.0)
[2023-02-28 14:54] LABS: ALT 15 U/L (4-34); AST 21 U/L (14-36); African American GFR (CKD) 79 (>60 ml/min/1.73 sqM); Albumin 4.6 g/dL (3.5-5.0); Alkaline Phosphatase 66 U/L (38-126); Anion Gap 12 mmol/L; Blood Urea Nitrogen 12 mg/dL (7-17); Calcium 9.7 mg/dL (8.4-10.2); Carbon Dioxide 21 mmol/L (22-30); Chloride 102 mmol/L (98-107); Glucose 102 mg/dL (74-99); Non-African American GFR(CKD) 69 (>60 ml/min/1.73 sqM); Potassium 4.4 mmol/L (3.5-5.1); Sodium 135 mmol/L (137-145); Total Bilirubin 0.9 mg/dL (0.2-1.3); Total Protein 8.9 g/dL (6.3-8.2)
[2023-02-28 15:08] LABS: HCG,Quantitative Serum 9209.6 mIU/mL
--- NOTE | 2023-02-28 15:44 | US ---
EXAMINATION TYPE: Transabdominal DATE OF EXAM: 02/28/2023 3:21 PM COMPARISON: US 03/31/22, No prior for this . CLINICAL INDICATION: Female, 32 years old with history of pain; Pain, history of 2 miscarriages. D an d C. . EXAM PERFORMED: Transvaginal (TV) and Transabdominal (TA) EXAM MEASUREMENTS: GESTATIONAL AGE / DATING Physician Established: Not yet established Dates by LMP: (4 weeks/5 days) EDC: 11/02/2023 Dates by First Scan: This is first scan Dates by Current Scan for: (5 weeks/0 days) EDC: 10/31/2023 By gestational sac only MATERNAL ANATOMY Uterus: 9.2 x 5.3 x 4.5 cm. Subcentimeter anechoic areas seen in cervix. Right Ovary: 3.9 x 2.4 x 2.7 cm. Complex area seen, mentioned below. Left Ovary: Not seen. Post CDS / Adnexa: Fluid seen in CDS. Presence of free fluid: Free fluid seen in CDS. Presence of corpus luteal cyst: Possible in right ovary, complex area seen: 2.1 x 1.9 x 2.4 cm. Presence of subchorionic bleed: Hypoechoic area seen adjacent to the gestational sac: 1.0 x 0.9 x 0.4 cm. GESTATION / SURVEY CRL: Not yet seen. MSD: 1.01 cm (5 weeks/0 days) Yolk Sac (normal less than 6mm): 1.8 mm IUP: Gestational sac and yolk sac were only seen at this time. Date of LMP: 01/26/2023 Beta HcG (if available): 9,209.6 mIU/mL IMPRESSION: There is intrauterine gestational sac with yolk sac however no evidence for pole. The findings could reflect normal early IUP however ectopic , blighted ovum and missed spontaneous aborti on are not excluded and strict clinical correlation as well as serial beta hCG and/or ultrasound are recommended. Small subchorionic hemorrhage seen as well. Complex right ovarian lesion.
[2023-02-28 16:46] VITALS: BP 116/89; PULSE 76; RESP 16; TEMP 98.2
== END 2023-02-28 16:51 | disposition home or self-care (01) ==
LOC: EC 13:05
DX: O26.891 Other specified pregnancy related conditions, first trimester (principal); R10.30 Lower abdominal pain, unspecified; O99.511 Diseases of the respiratory system complicating pregnancy, first trimester; J45.909 Unspecified asthma, uncomplicated; Z88.6 Allergy status to analgesic agent; Z3A.01 Less than 8 weeks gestation of pregnancy
CPT/HCPCS: 36415; 76801; 76817; 80053; 81001; 81025; 84702; 85025; 85610; 85730; 86900; 86901; 96360; 96361; 99284

== ENCOUNTER → 2023-03-02 | Outpatient (CLI) | payer OTHER | END | disposition home or self-care (01) | LOC: LABWHC1 11:57 | PROVIDERS: ATTEND Emergency Medicine | DX: Z36.89 Encounter for other specified antenatal screening (principal) | CPT/HCPCS: 36415; 84702 ==

== ENCOUNTER 2023-05-06 11:20 | Emergency (ER) | payer OTHER ==
[2023-05-06 11:47] VITALS: BP 126/88; PULSE 110; RESP 18; TEMP 97.7
--- NOTE | 2023-05-06 12:03 | ED ---
General Adult HPI - General Chief complaint: Abdominal Pain Stated complaint: Congestion Time Seen by Provider: 05/06/23 11:41 Source: patient Mode of arrival: ambulatory Limitations: no limitations - History of Present Illness Initial comments: Patient is a 32-year-old female who presents emergency room with complaints of flulike symptoms and decreased movement. Patient is roughly 14 weeks last menstrual period was January 29. Patient states that she has had nasal congestion sinus pressure and a sore throat for the last few days. No sick contacts. The patient states that she has had a decreased movement over the last 2 days especially at night. She states she was able to feel the baby move at night but has not last 2 days. Denies any abdominal pain or pelvic pain. She denies any vaginal bleeding. Occasionally she has burning when she urinates but states this is usually when she has not urinated in a while. Denies any vaginal discharge or change in sexual history. Denies any concerning for an STD. She states her OB tomorrow. - Related Data Home Medications Medication Instructions Recorded Confirmed Vit No.179/Iron/Folic 1 tab PO DAILY 02/14/22 02/14/22 [ Tablet] Allergies Allergy/AdvReac Type Severity Reaction Status Date / Time ibuprofen [From Motrin] Allergy Rash/Hives Verified 05/06/23 11:31 Review of Systems ROS Statement: Those systems with pertinent positive or pertinent negative responses have been documented in the HPI. ROS Other: All systems not noted in ROS Statement are negative. Past Medical History Past Medical History: Asthma Additional Past Medical History / Comment(s): migraines History of Any Multi-Drug Resistant Organisms: None Reported Past Surgical History: Section, Hernia Repair Additional Past Surgical History / Comment(s): D&C Past Anesthesia/Blood Transfusion Reactions: No Reported Reaction Past Psychological History: No Psychological Hx Reported Smoking Status: Never smoker Past Alcohol Use History: Occasional Past Drug Use History: None Reported - Past Family History Father Family Medical History: No Reported History Mother Family Medical History: No Reported History General Exam Limitations: no limitations General appearance: alert, in no apparent distress, appears intoxicated Head exam: Present: atraumatic Eye exam: Present: normal appearance, PERRL ENT exam: Present: normal exam, normal external ear exam, other (Maxillary sinus pressure palpation, posterior pharynx postnasal drip without any tonsillar swelling erythema or exudates. No muffled speech or drooling no sublingual swelling.) Neck exam: Present: normal inspection. Absent: tenderness, meningismus, lymphadenopathy Respiratory exam: Present: normal lung sounds bilaterally Cardiovascular Exam: Present: normal rhythm GI/Abdominal exam: Present: soft Extremities exam: Present: full ROM Neurological exam: Present: alert, oriented X3, CN II-XII intact, other (No meningeal signs no nuchal rigidity) Psychiatric exam: Present: normal affect, normal mood Course Vital Signs 05/06/23 11:29 Temperature 97.7 F Pulse Rate 110 H Respiratory 18 Rate Blood Pressure 126/88 O2 Sat by Pulse 99 Oximetry - Reevaluation(s) Reevaluation #1: 05/06/23 13:00 Failure tones 126-1 54 bpm Reevaluation #2: 05/06/23 14:01 Discussed lab results with the patient. patient is neg for RSV, covid, flu and strep. I discussed symptomatic management with the patient and follow up with her OB at her appt tomorrow. patient had no abdominal pain, no bleeding and FHTs 126-154bpm today, therefore, no US was done at this time. FHTs done by myself. Medical Decision Making - Medical Decision Making Was pt. sent in by a medical professional or institution (Dr. PA, APPLICATION TRAINER, urgent care, hospital, or residential...) When possible be specific @ -[No] Did you speak to anyone other than the patient for history (EMS, parent, family, police, friend...)? What history was obtained from this source @ -[No] Did you review nursing and triage notes (agree or disagree)? Why? @ -[I reviewed and agree with nursing and triage notes] Were old charts reviewed (outside hosp., previous admission, EMS record, old EKG, old radiological studies, urgent care reports/EKG's, residential records)? Report findings @ -Yes old charts are reviewed. Previous ED records from a few months ago with imaging intestine were evaluated by myself. Differential Diagnosis (chest pain, altered mental status, abdominal pain women, abdominal pain men, vaginal bleeding, weakness, fever, dyspnea, syncope, headache, dizziness, GI bleed, back pain, seizure, CVA, palpatations, mental health, musculoskeletal)? @ -Upper respiratory infection, RSV, flu, Covid, strep throat, evaluation EKG interpreted by me (3pts min.). @ -[As above] X-rays interpreted by me (1pt min.). @ -[None done] CT interpreted by me (1pt min.). @ -[None done] U/S interpreted by me (1pt. min.). @ -[None done] What testing was considered but not performed or refused? (CT, X-rays, U/S, labs)? Why? @ -Ultrasound however patient has no abdominal pain no pelvic pain, no vaginal bleeding or other symptoms. She is very early to feel movement and we were able to obtain good heart tones in the emergency room today. What meds were considered but not given or refused? Why? @ -[None] Did you discuss the management of the patient with other professionals (professionals i.e. , PA, APPLICATION TRAINER, lab, RT, psych nurse, medical social worker, station helper, teacher, audit officer, supportive employment case manager)? Give summary @ -Discussed patient's symptoms are And management with attending ED physician Dr. Lewis today. Was smoking cessation discussed for >3mins.? @ -[No] Was critical care preformed (if so, how long)? @ -[No] Were there social determinants of health that impacted care today? How? (Homelessness, low income, unemployed, alcoholism, drug addiction, transportation, low edu. Level, literacy, decrease access to med. care, skilled nursing, rehab)? @ -[No] Was there de-escalation of care discussed even if they declined (Discuss DNR or withdrawal of care, Hospice)? DNR status @ -[No] What co-morbidities impacted this encounter? (DM, HTN, Smoking, COPD, CAD, Cancer, CVA, ARF, Chemo, Hep., AIDS, mental health diagnosis, sleep apnea, morbid obesity)? @ - Was patient admitted / discharged? Hospital course, mention meds given and route, prescriptions, significant lab abnormalities, going to OR and other pertinent info. @ -Patient's whelping emergency room. Her vital signs are stable. She has no wheezing rhonchi or crackles on exam. O2 sat is stable. She is negative for Covid for RSV and has normal heart tones. She is stable to follow up as an outpatient. Undiagnosed new problem with uncertain prognosis? @ -[No] Drug Therapy requiring intensive monitoring for toxicity (Heparin, Nitro, Insulin, Cardizem)? @ -[No] Were any procedures done? @ -[No] Diagnosis/symptom? @ -URI, evaluation Acute, or Chronic, or Acute on Chronic? @ -Acute Uncomplicated (without systemic symptoms) or Complicated (systemic symptoms)? @ -Uncomplicated Side effects of treatment? @ -[No] Exacerbation, Progression, or Severe Exacerbation? @ -[No] Poses a threat to life or bodily function? How? (Chest pain, [place], [place], pneumonia, PE, COPD, DKA, ARF, appy, cholecystitis, CVA, Diverticulitis, Homicidal, Suicidal, threat to staff... and all critical care pts) @ -[No] - Lab Data Lab Results 05/06/23 05/06/23 05/06/23 Range/Units 12:17 12:17 12:17 Urine Color Yellow Urine Appearance Cloudy H (Clear) Urine pH 6.0 (5.0-8.0) Ur Specific Lillian 1.015 (1.001-1.035) Urine Protein Trace H (Negative) Urine Glucose (UA) Negative (Negative) Urine Ketones Negative (Negative) Urine Blood Negative (Negative) Urine Nitrite Negative (Negative) Urine Bilirubin Negative (Negative) Urine Urobilinogen <2.0 (<2.0) mg/dL Ur Leukocyte Esterase Negative (Negative) Urine RBC 1 (0-5) /hpf Urine WBC 10 H (0-5) /hpf Ur Squamous Epith Cells 1 (0-4) /hpf Urine Bacteria Many H (None) /hpf Urine Mucus Occasional H (None) /hpf Influenza Type A (PCR) Not Detected (Not Detectd) Influenza Type B (PCR) Not Detected (Not Detectd) RSV (PCR) Not Detected (Not Detectd) SARS-CoV-2 (PCR) Not Detected (Not Detectd) Group A Strep (PCR) NOT DETECTED (Not Detectd) Disposition Clinical Impression: , URI, acute, Encounter for medical screening examination Disposition: HOME SELF-CARE Condition: Good Instructions (If sedation given, give patient instructions): (ED), Upper Respiratory Infection (ED), Viral Syndrome (ED) Additional Instructions: FOLLOW UP AT YOUR APPOINTMENT TOMORROW Is patient prescribed a controlled substance at d/c from ED?: No Referrals: None,Stated [Primary Care Provider] - 1-2 days Time of Disposition: 14:05
[2023-05-06 12:55] LABS: Appearance,Urine Cloudy (Clear); Bacteria,Urine Many /hpf; Bilirubin,Urine Negative (Negative); Blood,Urine Negative (Negative); Color,Urine Yellow; Glucose,Urine (UA) Negative (Negative); Ketones,Urine Negative (Negative); Leukocyte Esterase,Urine Negative (Negative); Mucus,Urine Occasional /hpf; Nitrite,Urine Negative (Negative); Protein,Urine Trace (Negative); RBC,Urine 1 /hpf (0-5); Specific Gravity,Urine 1.015 (1.001-1.035); Squamous Epithelial Cell,Urine 1 /hpf (0-4); Urobilinogen,Urine <2.0 mg/dL (<2.0); WBC,Urine 10 /hpf (0-5)
== END 2023-05-06 14:10 | disposition home or self-care (01) ==
LOC: EC 11:20
DX: O99.512 Diseases of the respiratory system complicating pregnancy, second trimester (principal); J06.9 Acute upper respiratory infection, unspecified; Z13.9 Encounter for screening, unspecified; J45.909 Unspecified asthma, uncomplicated; Z3A.14 14 weeks gestation of pregnancy; Z20.822 Contact with and (suspected) exposure to COVID-19
CPT/HCPCS: 81001; 87636; 87651; 99284

== ENCOUNTER 2023-10-26 06:24 | Inpatient (IN) | payer OTHER ==
[2023-10-25 16:22] VITALS: BMI 33.1
[2023-10-26] MEDS ORDERED: TRANEXAMIC 1,000 MG/100ML-NACL 1,000 MG in EMPTY BAG 1 BAG IV PRN (06:31)
[2023-10-26] MEDS ORDERED: miSOPROStoL 200 MCG TAB PO PRN (06:31)
[2023-10-26] MEDS ORDERED: CARBOPROST TROMETHAMINE 250 MCG/ML 1 ML AMP IM PRN (06:31)
[2023-10-26] MEDS ORDERED: OXYTOCIN 10 UNIT/ML 1 ML VIAL IM PRN (06:31)
[2023-10-26] MEDS ORDERED: METHYLERGONOVINE 0.2 MG/ML 1 ML AMP IM PRN (06:31)
[2023-10-26] MEDS: LACTATED RINGERS 1,000 ML IV SCH ×2 (06:43→14:04)
[2023-10-26 06:58] LABS: Basophils % (A) 1 %; Eosinophils # (A) 0.1 k/uL (0-0.7); Eosinophils % (A) 3 %; HCT 37.1 % (34.0-46.0); HGB 12.7 gm/dL (11.4-16.0); Lymphocytes # (A) 1.3 k/uL (1.0-4.8); Lymphocytes % (A) 24 %; MCH 32.3 pg (25.0-35.0); MCHC 34.3 g/dL (31.0-37.0); MCV 94.4 fL (80.0-100.0); Mean Platelet Volume 8.2; Monocytes # (A) 0.4 k/uL (0-1.0); Monocytes % (A) 8 %; Neutrophils # (A) 3.3 k/uL (1.3-7.7); Neutrophils % (A) 61 %; Platelet Count 200 k/uL (150-450); RBC 3.94 m/uL (3.80-5.40); WBC 5.3 k/uL (3.8-10.6)
[2023-10-26] MEDS: CITRIC ACID-SODIUM CITRATE 15 ML CUP PO ONE (07:49)
[2023-10-26] MEDS ORDERED: OXYTOCIN 30 UNITS/500 ML NS BAG IV ONE (08:10)
[2023-10-26] MEDS ORDERED: MORPHINE SULFATE (PF) 0.3 MG/0.3 ML SYR ONE (08:10)
--- NOTE | 2023-10-26 09:15 | P.HPOB ---
History of Present Illness H&P Date: 10/26/23 Chief Complaint: Scheduled repeat section Ms. Villagomez is a 33 year old at 39 weeks and 0 days with EDC of 11/02/2023 by LMP consistent with 6 week US who presents for scheduled repeat section. Her has been essentially uncomplicated. The fetus had a growth US at 32 weeks that showed estimated weight in the 49%ile. Obstetric history: 1 FTCS 2/2 arrest of active labor, 2 SABs managed with D&C work-up: blood type O positive, antibody screen negative, rubella immune, VDRL non-reactive, HBsAg negative, HIV negative, HCV Ab negative, gonorrhea negative, chlamydia negative, 1 hour GTT within normal limits, GBS negative. Past Medical History Past Medical History: Asthma Additional Past Medical History / Comment(s): migraines History of Any Multi-Drug Resistant Organisms: None Reported Past Surgical History: Section, Hernia Repair Additional Past Surgical History / Comment(s): D&C x 2,hernia repair than later had emergency surgery to remove mesh Past Anesthesia/Blood Transfusion Reactions: No Reported Reaction Past Psychological History: No Psychological Hx Reported Smoking Status: Never smoker Past Alcohol Use History: Occasional Past Drug Use History: None Reported Additional Drug Use History / Comment(s): pt. states she used to smoke when she was younger - Past Family History Father Family Medical History: No Reported History Mother Family Medical History: No Reported History Medications and Allergies Home Medications Medication Instructions Recorded Confirmed Type Vit No.179/Iron/Folic 1 tab PO DAILY 02/14/22 10/26/23 History [ Tablet] Albuterol Inhaler [Ventolin Hfa 1 - 2 puff INHALATION Q6H PRN 10/25/23 10/25/23 History Inhaler] Allergies Allergy/AdvReac Type Severity Reaction Status Date / Time ibuprofen [From Motrin] Allergy "throat Verified 10/26/23 06:30 itchy and feels like it's closing up" Exam Intake and Output 10/25/23 10/26/23 10/26/23 22:59 06:59 14:59 Other: Weight 83.461 kg 83.461 kg Focused physical exam is performed. This is a healthy-appearing in no apparent distress. Breathing is non-labored. Abdomen is gravid and non-tender. Extremities non-tender and non-edematous. heart tones are reactive and reassuring on NST. Results Result Diagrams: 10/26/23 06:42 Assessment and Plan Assessment: 33 year old at 39 weeks and 0 days presenting for scheduled repeat section Plan: Admit, NPO, initiate protocol
[2023-10-26] MEDS ORDERED: NALOXONE 0.4 MG/ML 1 ML VIAL IV PRN (09:18)
[2023-10-26] MEDS ORDERED: ZOLPIDEM 5 MG TAB PO PRN (09:18)
[2023-10-26] MEDS ORDERED: diphenhydrAMINE 50 MG/ML 1 ML VIAL IVP PRN ×2 (09:18)
[2023-10-26] MEDS ORDERED: ONDANSETRON 4 MG/2 ML VIAL IVP PRN (09:18)
[2023-10-26] MEDS ORDERED: diphenhydrAMINE 25 MG CAP PO PRN (09:18)
[2023-10-26] MEDS ORDERED: METOCLOPRAMIDE 5 MG/ML 2 ML VIAL IVP PRN (09:18)
--- NOTE | 2023-10-26 09:18 | P.OP ---
Date of Procedure: 10/26/23 Preoperative Diagnosis: 1. Term IUP at 39 weeks 2. History of prior 3. No desire for TOLAC Postoperative Diagnosis: Same Procedure(s) Performed: Repeat Lower Transverse Section Implants: None Anesthesia: spinal Surgeon: Sabine Quintanilla Manager Equity #1: Austen Molina Estimated Blood Loss (ml): 700 IV fluids (ml): 1,000 Urine output (ml): 300 (clear yellow) Pathology: none sent Condition: stable Disposition: floor Indications for Procedure: Ms. Villagomez is a 33 year old at 39 weeks who presents for scheduled repeat section. The risks, benefits, and alternatives to section were discussed with the patient including risk of bleeding, infection, damage to surrounding structures including bladder/bowels/ureters, and post-operative VTE. The patient understands these risks and desires to proceed with section. Operative Findings: Colorless amniotic fluid. Infant in occiput anterior presentation. Viable female delivered with scores of 9 and 9. Weight is 8 pounds and 1 ounce (3670 grams). Normal uterus, bilateral fallopian tubes, and ovaries. Description of Procedure: The patient was taken to the operating room where spinal anesthesia was found to be adequate. Two grams of Acnef were given for infection prophylaxis. She was prepared and draped in the dorsal supine position with a leftward tilt. A Pfannenstiel skin incision was made with the scalpel. The incision was carried down to the fascia with a bovie. The fascia was incised and extended laterally with Gastelum scissors. The superior aspect of the fascia was grasped with Maya clamps. The underlying rectus muscle was dissected off sharply with Gastelum scissors. In a similar fashion, the inferior aspect of the fascia was elevated with Maya clamps and the rectus muscle and pyramidalis were dissected off. Excellent hemostasis was achieved with the bovie. The rectus muscle was in the midline down to the level of the pubic symphysis. Pre- peritoneal fatty tissue was bluntly dissected to expose the peritoneum. The peritoneum was found to be free of adherent bowel and entered sharply with Gastelum scissors. The peritoneal incision was extended superiorly and inferiorly to the bladder reflection with good visualization of the bladder. The bladder blade was inserted and vesicouterine peritoneum was identified. Intraabdominal survey revealed scant, clear peritoneal fluid and the thinned-out lower uterine segment. The bladder blade was repositioned to keep the bladder out of the opera tive field. The lower uterine segment was incised with a scalpel. The amniotic sac was ruptured with an Allis clamp and clear fluid was noted. The uterine incision was extended bluntly with lateral and upward traction. The fetus was in occiput anterior position. The head was elevated out of the pelvis with special attention paid to avoid using the uterine incision as a fulcrum. Gentle fundal pressure was applied once the head was brought into the incision. The infant was delivered with no difficulty. The mouth and nose were suctioned with a bulb. The cord was clamped and cut. was noted to be spontaneously crying. The infant was handed off to the shipwright apprentice. IV oxytocin was initiated to facilitate uterine contractions. The placenta was delivered intact with manual massage of uterine fundus. The uterus was then exteriorized and the inside of the uterus was gently wiped with a lap sponge to assure complete removal of placental membranes. The uterine incision was closed with a 0-Polysorb suture in a running locked fashion. A second imbricating layer of 0-Polysorb was placed along the incision. The ovaries and tubes were found to be normal. The uterus, tubes, and ovaries were then gently returned to the abdominal cavity. The blood clots and fluid were wiped out of the abdomen and pelvis with moist laparotomy sponges. The pelvis was copiously suction irrigated. The uterine incision was reinspected and excellent hemostasis was noted. The fascial layer was closed with a 0-Vicryl suture. The subcutaneous tissue was reapproximated with 2-0 Plain Gut. The skin was closed with 4-0 Monocryl in a subcuticular fashion. The patient tolerated the procedure well. All the counts were correct times two. The patient was taken to the recovery room in a stable condition.
[2023-10-26] MEDS: SIMETHICONE 80 MG CHEWABLE PO PRN (14:00)
[2023-10-26] MEDS: ACETAMINOPHEN TAB 500 MG TAB PO SCH (14:00)
[2023-10-26] MEDS: SENNOSIDES-DOCUSATE SODIUM 1 EACH TAB PO SCH (20:43)
[2023-10-27] MEDS: diphenhydrAMINE 50 MG CAP PO PRN (00:25)
[2023-10-27 07:02] LABS: Basophils % (A) 0 %; Eosinophils # (A) 0.2 k/uL (0-0.7); Eosinophils % (A) 2 %; HCT 32.5 % (34.0-46.0); HGB 10.6 gm/dL (11.4-16.0); Lymphocytes # (A) 1.2 k/uL (1.0-4.8); Lymphocytes % (A) 11 %; MCH 31.6 pg (25.0-35.0); MCHC 32.5 g/dL (31.0-37.0); MCV 97.1 fL (80.0-100.0); Mean Platelet Volume 8.6; Monocytes # (A) 0.8 k/uL (0-1.0); Monocytes % (A) 8 %; Neutrophils # (A) 7.8 k/uL (1.3-7.7); Neutrophils % (A) 77 %; Platelet Count 200 k/uL (150-450); RBC 3.34 m/uL (3.80-5.40); RDW 13.2 % (11.5-15.5); WBC 10.2 k/uL (3.8-10.6)
--- NOTE | 2023-10-27 12:02 | P.PNOBGPC ---
Subjective - Subjective Patient reports: Reports appetite normal, Reports voiding normally, Reports pain well controlled, Reports ambulating normally : doing well Objective - Vital Signs Latest vital signs: Vital Signs Temp Pulse Resp BP Pulse Ox 10/27/23 09:00 98.5 F 81 16 110/71 98 10/27/23 08:00 16 10/27/23 04:00 98.0 F 80 16 110/68 98 10/27/23 00:00 97.7 F 77 16 112/74 98 10/26/23 20:00 98.5 F 80 16 101/69 97 10/26/23 16:00 97.9 F 88 14 116/79 Intake and Output 10/26/23 10/27/23 10/27/23 22:59 06:59 14:59 Output Total 800 900 Balance -800 -900 Output: Urine 800 900 Uretheral (Mariee) 400 Other: Voiding Method Toilet # Voids 1 1 - Exam Extremities: Present: normal Abdomen: Present: normal appearance, soft. Absent: distention, tenderness Incision: Present: normal, dry, intact Uterus: Present: normal, firm (The uterine fundus is tonic and appropriately tender around the umbilicus.) - Labs Labs: Abnormal Lab Results - Last 24 Hours (Table) 10/27/23 Range/Units 06:38 RBC 3.34 L (3.80-5.40) m/uL Hgb 10.6 L (11.4-16.0) gm/dL Hct 32.5 L (34.0-46.0) % Neutrophils # 7.8 H (1.3-7.7) k/uL Assessment and Plan (1) S/P repeat low transverse Current Visit: Yes Status: Acute Code(s): Z98.891 - HISTORY OF UTERINE SCAR FROM PREVIOUS SURGERY SNOMED Code(s): 156340743 Plan: Continue routine and postoperative care. I would anticipate discharge home tomorrow pending no complications. I have strongly encouraged the patient to ambulate in the hallways routinely. She is tolerating both fluids and solids and performing all activities of daily living.
--- NOTE | 2023-10-27 14:24 | P.PN ---
Progress Note - Text Progress Note Date: 10/27/23 Postoperative day 1 status post section under spinal anesthesia, and intrathecal morphine given for postoperative analgesia, patient doing well, there is no anesthesia related complications, Patient had no headache, vital signs stable , Assessment and plan= postop day 1 status post , doing well there is no anesthesia related complication.
--- NOTE | 2023-10-28 09:52 | P.PNOBGPC ---
Subjective - Subjective Patient reports: Reports appetite normal, Reports voiding normally, Reports pain well controlled, Reports ambulating normally : doing well Objective - Vital Signs Latest vital signs: Vital Signs Temp Pulse Resp BP Pulse Ox 10/28/23 08:00 98.6 F 83 16 117/80 10/28/23 00:00 98.1 F 77 16 118/79 10/27/23 16:00 98.2 F 77 16 118/78 98 Intake and Output 10/27/23 10/28/23 10/28/23 22:59 06:59 14:59 Other: Voiding Method Toilet Toilet # Voids 2 2 1 - Exam Extremities: Present: normal Abdomen: Present: normal appearance, soft. Absent: distention, tenderness Incision: Present: normal, dry, intact Uterus: Present: normal, firm (The uterine fundus is tonic and appropriately tender just below the umbilicus.) Assessment and Plan (1) S/P repeat low transverse Current Visit: Yes Status: Acute Code(s): Z98.891 - HISTORY OF UTERINE SCAR FROM PREVIOUS SURGERY SNOMED Code(s): 778741205 Plan: The patient wishes to remain in the hospital for another day. She will have continued routine and postoperative care. I would anticipate discharge home tomorrow pending no complications and the patient's decision to agree for discharge.
[2023-10-29 12:42] VITALS: BP 121/70; PULSE 89; RESP 14; TEMP 97.9
== END 2023-10-29 14:56 | disposition home or self-care (01) | DRG 540 ==
LOC: 4FBP 06:24
PROVIDERS: ADMIT Obstetrics & Gynecology; ATTEND Obstetrics & Gynecology
PROC: 10D00Z1 Extraction of Products of Conception, Low, Open Approach (ICD-10-PCS; principal; 2023-10-26 08:00)
DX: O34.211 Maternal care for low transverse scar from previous cesarean delivery (principal); O99.52 Diseases of the respiratory system complicating childbirth; J45.909 Unspecified asthma, uncomplicated; Z87.891 Personal history of nicotine dependence; Z28.310 Unvaccinated for COVID-19; Z88.6 Allergy status to analgesic agent; Z3A.39 39 weeks gestation of pregnancy; Z37.0 Single live birth
CPT/HCPCS: 85025; 86850; 86900; 86901

== ENCOUNTER 2024-06-30 11:20 | Emergency (ER) | payer OTHER ==
[2024-06-30 11:23] VITALS: BP 115/81; PULSE 105; RESP 22; TEMP 99.8
--- NOTE | 2024-06-30 11:37 | ED ---
URI HPI - General Source: patient, RN notes reviewed Mode of arrival: ambulatory Limitations: no limitations - History of Present Illness MD Complaint: cough <ShellmoniqueDanna - Last Filed: 06/30/24 11:36> - General Source: patient, RN notes reviewed Mode of arrival: ambulatory Limitations: no limitations <Hernando Espnioza - Last Filed: 06/30/24 13:00> - General Chief Complaint: Upper Respiratory Infection Stated Complaint: SOB Time Seen by Provider: 06/30/24 11:30 - History of Present Illness Initial Comments: Quick Note: This is a 33-year-old female who presents to the emergency department for coughing and shortness of breath. States that it started yesterday. She has a history of asthma and feels like it is acting up on her. She is unable to find her rescue inhaler or nebulizer. States that the cough is productive. (Danna Jones) Is a 33-year-old female presents emergency department complaint of cough, fever chills. Patient states symptoms started yesterday. Patient states that she does have a history of asthma but denies any wheezing. Patient states that she believes her cough is productive she is very nauseated (Hernando Espinoza) - Related Data Home Medications Medication Instructions Recorded Confirmed Vit No.179/Iron/Folic 1 tab PO DAILY 02/14/22 10/26/23 [ Tablet] Albuterol Inhaler [Ventolin Hfa 1 - 2 puff INHALATION Q6H PRN 10/25/23 10/25/23 Inhaler] Previous Rx's Medication Instructions Recorded Acetaminophen Tab [Tylenol] 650 mg PO Q6H PRN #30 tab 10/29/23 oxyCODONE HCL [Roxicodone] 5 mg PO Q6HR PRN 3 Days #12 tab 10/29/23 Albuterol Inhaler [Ventolin Hfa 1 - 2 puff INHALATION Q6H PRN #1 06/30/24 Inhaler] each Ondansetron Odt [Zofran Odt] 4 mg PO Q8HR PRN #10 tab 06/30/24 Allergies Allergy/AdvReac Type Severity Reaction Status Date / Time ibuprofen [From Motrin] Allergy "throat Verified 06/30/24 11:23 itchy and feels like it's closing up" Review of Systems ROS Other: All systems not noted in ROS Statement are negative. <Danna Jones - Last Filed: 06/30/24 11:36> ROS Other: All systems not noted in ROS Statement are negative. <Hernando Espinoza - Last Filed: 06/30/24 13:00> ROS Statement: Those systems with pertinent positive or pertinent negative responses have been documented in the HPI. Past Medical History Past Medical History: Asthma Additional Past Medical History / Comment(s): migraines History of Any Multi-Drug Resistant Organisms: None Reported Past Surgical History: Section, Hernia Repair Additional Past Surgical History / Comment(s): D&C x 2,hernia repair than later had emergency surgery to remove mesh Past Anesthesia/Blood Transfusion Reactions: No Reported Reaction Past Psychological History: No Psychological Hx Reported Smoking Status: Never smoker Past Alcohol Use History: Occasional Past Drug Use History: None Reported - Past Family History Father Family Medical History: No Reported History Mother Family Medical History: No Reported History <Danna Jones - Last Filed: 06/30/24 11:36> General Exam Limitations: no limitations <Danna Jones - Last Filed: 06/30/24 11:36> Limitations: no limitations General appearance: alert, in no apparent distress Head exam: Present: atraumatic, normocephalic, normal inspection Eye exam: Present: normal appearance, PERRL, EOMI. Absent: scleral icterus, conjunctival injection, periorbital swelling ENT exam: Present: normal exam, mucous membranes moist Neck exam: Present: normal inspection. Absent: tenderness, meningismus, lymphadenopathy Respiratory exam: Present: normal lung sounds bilaterally. Absent: respiratory distress, wheezes, rales, rhonchi, stridor Cardiovascular Exam: Present: regular rate, normal rhythm, normal heart sounds. Absent: systolic murmur, diastolic murmur, rubs, gallop, clicks <Hernando Espinoza - Last Filed: 06/30/24 13:00> - General Exam Comments Initial Comments: Visual Physical Exam Vital signs reviewed General: Well-appearing, nontoxic, no acute distress. Head: Normocephalic, atraumatic Eyes: PERRLA, EOMI ENT: Airway patent Chest: Nonlabored breathing Skin: No visual rash, normal skin tone Neuro: Alert and oriented 3 Musculoskeletal: No gross abnormalities (Danna Jones) Course Vital Signs 06/30/24 11:21 Temperature 99.8 F H Pulse Rate 105 H Respiratory 22 Rate Blood Pressure 115/81 O2 Sat by Pulse 100 Oximetry Medical Decision Making <Danna Jones - Last Filed: 06/30/24 11:36> <Hernando Espinoza - Last Filed: 06/30/24 13:00> - Medical Decision Making I performed the QuickNote portion of this chart. Signed Danna Jones PA-C. (Danna Jones) Was pt. sent in by a medical professional or institution (, [facility]AN, UTILITY WORKER, urgent care, hospital, or prison...) When possible be specific @ -[ Did you speak to anyone other than the patient for history (EMS, parent, family, police, friend...)? What history was obtained from this source @ -No Did you review nursing and triage notes (agree or disagree)? Why? @ -I reviewed and agree with nursing and triage notes Were old charts reviewed (outside hosp., previous admission, EMS record, old EKG, old radiological studies, urgent care reports/EKG's, prison records)? Report findings @ -No old charts were reviewed Differential Diagnosis (chest pain, altered mental status, abdominal pain women, abdominal pain men, vaginal bleeding, weakness, fever, dyspnea, syncope, headache, dizziness, GI bleed, back pain, seizure, CVA, palpatations, mental health, musculoskeletal)? @ -Not applicable EKG interpreted by me (3pts min.). @ -As above X-rays interpreted by me (1pt min.). @ -None done CT interpreted by me (1pt min.). @ -None done U/S interpreted by me (1pt. min.). @ -None done What testing was considered but not performed or refused? (CT, X-rays, U/S, labs)? Why? @ -None What meds were considered but not given or refused? Why? @ -None Did you discuss the management of the patient with other professionals (professionals i.e. ALAN Peralta, UTILITY WORKER, lab, RT, psych nurse, licensed clinical social worker, barrel drainer, teacher, chief commercial officer, counter caser)? Give summary @ -No Was smoking cessation discussed for >3mins.? @ -No Was critical care preformed (if so, how long)? @ -No Were there social determinants of health that impacted care today? How? (Homelessness, low income, unemployed, alcoholism, drug addiction, transportation, low edu. Level, literacy, decrease access to med. care, prison, rehab)? @ -No Was there de-escalation of care discussed even if they declined (Discuss DNR or withdrawal of care, Hospice)? DNR status @ -No What co-morbidities impacted this encounter? (DM, HTN, Smoking, COPD, CAD, Cancer, CVA, ARF, Chemo, Hep., AIDS, mental health diagnosis, sleep apnea, morbid obesity)? @ -None Was patient admitted / discharged? Hospital course, mention meds given and route, prescriptions, significant lab abnormalities, going to OR and other pertinent info. @ -Discharged patient is influenza A positive. Patient offered Tamiflu patient declined stating that she already has nausea like symptoms worse. Patient discharged with antiemetics, inhaler return parens discussed. Undiagnosed new problem with uncertain prognosis? @ -No Drug Therapy requiring intensive monitoring for toxicity (Heparin, Nitro, Insulin, Cardizem)? @ -No Were any procedures done? @ -No Diagnosis/symptom? @ -Influenza A Acute, or Chronic, or Acute on Chronic? @ -Acute Uncomplicated (without systemic symptoms) or Complicated (systemic symptoms)? @ -Uncomplicated Side effects of treatment? @ -No Exacerbation, Progression, or Severe Exacerbation? @ -No Poses a threat to life or bodily function? How? (Chest pain, USA, IA, pneumonia, PE, COPD, DKA, ARF, appy, cholecystitis, CVA, Diverticulitis, Homicidal, Suicidal, threat to staff... and all critical care pts) @ -No (Hernando Espinoza) - Lab Data Lab Results 06/30/24 Range/Units 11:25 Influenza Type A (PCR) Detected A (Not Detectd) Influenza Type B (PCR) Not Detected (Not Detectd) RSV (PCR) Not Detected (Not Detectd) SARS-CoV-2 (PCR) Not Detected (Not Detectd) Disposition <Danna Jones - Last Filed: 06/30/24 11:36> Is patient prescribed a controlled substance at d/c from ED?: No Time of Disposition: 12:39 <Hernando Espinoza - Last Filed: 06/30/24 13:00> Clinical Impression: Influenza A Disposition: HOME SELF-CARE Condition: Stable Instructions (If sedation given, give patient instructions): Influenza (ED) Additional Instructions: Please return to the Emergency Department if symptoms worsen or any other concerns. Prescriptions: Ondansetron Odt [Zofran Odt] 4 mg PO Q8HR PRN #10 tab PRN Reason: Nausea Referrals: None,Stated [Primary Care Provider] - 1-2 days
--- NOTE | 2024-06-30 12:31 | XR ---
EXAMINATION TYPE: XR chest 2V DATE OF EXAM: 06/30/2024 12:03 PM COMPARISON: Chest radiographs from 12/28/2013 CLINICAL INDICATION: Female, 33 years old with history of Cough; TECHNIQUE: XR chest 2V Frontal and lateral views of the chest. FINDINGS: Lungs/Pleura: There is no evidence of pleural effusion, focal consolidation, or pneumothorax. Pulmonary vascularity: Unremarkable. Heart/mediastinum: Cardiomediastinal silhouette is unremarkable. Musculoskeletal: No acute osseous pathology. IMPRESSION: No acute cardiopulmonary disease/process. [facility], , 06/30/2024 12:28 PM
[2024-06-30] MEDS: ONDANSETRON 4 MG ODT STARTER PACK 2 TAB BTL PO STA (13:39)
[2024-06-30] MEDS: ACETAMINOPHEN TAB 500 MG TAB PO STA (13:43)
== END 2024-06-30 13:45 | disposition home or self-care (01) ==
LOC: EC 11:20
DX: J10.1 Influenza due to other identified influenza virus with other respiratory manifestations (principal); B95.0 Streptococcus, group A, as the cause of diseases classified elsewhere; Z88.6 Allergy status to analgesic agent
CPT/HCPCS: 87636; 71046; 99285; S0119